=== PATIENT | female | born 1950 | race Caucasian/White ===

== ENCOUNTER 2017-10-14 22:31 | Emergency (ER) | payer OTHER ==
[~2017-10-14] VITALS: Ht 180.3 cm; Wt 87.1 kg
[~2017-10-14 22:31] MED LIST: ASPIRIN EC81 MG PO; SIMVASTATIN10 MG PO
[2017-10-14] MEDS ORDERED: CARVEDILOL12.5 MG PO (22:43)
[2017-10-14] MEDS ORDERED: NORVASC5 MG PO (22:44)
[2017-10-14] MEDS ORDERED: LOSARTAN POTAS100 MG PO (22:44)
[2017-10-14] MEDS ORDERED: TRAZODONE HCL50 MG PO (22:45)
--- OUTSIDE RECORDS SUMMARY | 2017-10-14 23:26 | XMS | Clinical Summary ---
Demographics + + + | Address | [address] | | | [place] [address] | + + + | Home Phone | | + + + | Preferred Language | Unknown | + + + | Marital Status | | + + + | Restoration Affiliation | Unknown | + + + | Race | Unknown | + + + | Ethnic Group | Unknown | + + + Author + + + | Author | [facility] | | | and [place] | + + + | Organization | [facility] | | | and [place] | + + + | Address | Unknown | + + + | Phone | Unavailable | + + + Support + + + + + | Name | Relationship | Address | Phone | + + + + + | Elmer Murillo | ECON | [address] | | | | | [place] [address] | | + + + + + Care Team Providers + +------+ + | Care Operations Lieutenant Name | Role | Phone | + +------+ + | Sharif Fields DO | PP | Unavailable | + +------+ + Allergies No Known Allergies Current Medications + + +---------+---------+------+------+-------+ | Prescription | Sig. | Disp. | Refills | Star | End | Statu | | | | | | t | Date | s | | | | | | Date | | | + + +---------+---------+------+------+-------+ | simvastatin | Take 40 mg by mouth | | | 03/07 | | Activ | | (ZOCOR) 40 mg tablet | Daily. | | | 09/23 | | e | | | | | | 12 | | | + + +---------+---------+------+------+-------+ | aspirin (ASPIRIN | two tablets daily | | | 03/07 | | Activ | | ADULT LOW STRENGTH) | | | | 3/20 | | e | | 81 MG EC tablet | | | | 12 | | | + + +---------+---------+------+------+-------+ | Flaxseed, Linseed, | Take 1,000 mg by | | | 03/07 | | Activ | | (FLAXSEED OIL) 1000 | mouth Daily. | | | 3/20 | | e | | MG CAPS | | | | 12 | | | + + +---------+---------+------+------+-------+ | benzonatate | Take 1 capsule by | 30 | 1 | 02/2 | | Activ | | (TESSALON) 200 MG | mouth 3 times daily | capsule | | 5/20 | | e | | capsuleIndications: | as needed for Cough | | | 16 | | | | Acute bronchitis, | for up to 30 doses. | | | | | | | unspecified organism | | | | | | | + + +---------+---------+------+------+-------+ | | Take 1 tablet by | 30 | 0 | 05/2 | | Activ | | HYDROcodone-acetamin | mouth every 6 hours | tablet | | 1/20 | | e | | ophen (NORCO) 5-325 | as needed for Pain | | | 16 | | | | mg per | (requires photo ID | | | | | | | tabletIndications: | to sampler pickup). | | | | | | | Acute bilateral back | | | | | | | | pain, unspecified | | | | | | | | location | | | | | | | + + +---------+---------+------+------+-------+ Active Problems No known active problems Immunizations + + + + | Name | Dates Previously Given | Next Due | + + + + | INFLUENZA PF | 04/27/2016, 04/22/2015, 04/16/2014 | | | QUAD(PED/ADOL/ADULT) | | | | ,PSKT or VIAL | | | + + + + | INFLUENZA, | 04/26/2017 | | | UNSPECIFIED | | | | FORMULATION | | | + + + + Social History + +-------+ +--------+ + | Tobacco Use | Types | Packs/Day | Years | Date | | | | | Used | | + +-------+ +--------+ + | Former Smoker | | | | Quit: 12/09/2002 | + +-------+ +--------+ + + +---+---+---+ | Smokeless Tobacco: | | | | | Never Used | | | | + +---+---+---+ + + + | Sex Assigned at | Date Recorded | | | | + + + | Not on file | | + + + Last Filed Vital Signs + + + + | Vital Sign | Reading | Time Taken | + + + + | Blood Pressure | 188/108 | 11/25/20151407 PDT | + + + + | Pulse | 64 | 11/25/20151407 PDT | + + + + | Temperature | 36.7 C (98.1 F) | 11/25/20151407 PDT | + + + + | Respiratory Rate | 16 | 11/25/20151407 PDT | + + + + | Oxygen Saturation | 96% | 11/25/20151407 PDT | + + + + | Inhaled Oxygen | - | - | | Concentration | | | + + + + | Weight | 81.7 kg (180 lb 2.7 | 11/25/20151407 PDT | | | oz) | | + + + + | Height | 180.3 cm (5' 11") | 11/25/20151407 PDT | + + + + | Body Mass Index | 25.13 | 11/25/20151407 PDT | + + + + Plan of Treatment + + + + + | Health Maintenance | Due Date | Last Done | Comments | + + + + + | Hepatitis C | | | | | Screening | 3 | | | + + + + + | Vaccine: | | | | | Dtap/Tdap/Td (1 - | 2 | | | | Tdap) | | | | + + + + + | CERVICAL CANCER | | | | | SCREENING (PAP EVERY | 4 | | | | 3 YEARS 21-64 ) | | | | + + + + + | BREAST CANCER | | | | | SCREENING (MAMM Q2 | 3 | | | | YEARS 50-74) | | | | + + + + + | COLON CANCER | | | | | SCREENING | 3 | | | | (COLONOSCOPY EVERY | | | | | 10 YEARS 50-75) | | | | + + + + + | Vaccine: Zoster (#1) | | | | | | 3 | | | + + + + + | Vaccine: Influenza | Completed | 04/26/2017, 04/27/2016, | | | | | 04/22/2015, Additional history | | | | | exists | | + + + + + Results Not on filefrom Last 3 Months Insurance +-------+--------+ +------+ + + | Payer | Benefi | Subscriber | Type | Phone | Address | | | t Plan | ID | | | | | | / | | | | | | | Group | | | | | +-------+--------+ +------+ + + | [employer] | [employer] | xxxxxxxxx | PPO | [phone] | [address] [address] | | | HEALTH | | | [phone] | [place] [address] | | | | | | | | | | [place] | | | | | | | [place] | | | | | +-------+--------+ +------+ + + + +--------+ +--------+ + + | Guarantor Name | Accoun | Relation to | Date | Phone | Billing Address | | | t Type | Patient | of | | | | | | | | | | + +--------+ +--------+ + + | TILA MURILLO | Person | Self [birth year] Home: | [address] | | | al/[place] | | 1950 | [phone] | [place] [address] | | | erlinda | | | [phone] | | + +--------+ +--------+ + +
--- OUTSIDE RECORDS SUMMARY | 2017-10-14 23:27 | XMS | Clinical Summary ---
Demographics + + + | Address | [address] | | | [place] [address] | + + + | Home Phone | | + + + | Preferred Language | Unknown | + + + | Marital Status | | + + + | Shinto Affiliation | Unknown | + + + | Race | Unknown | + + + | Ethnic Group | Unknown | + + + Author + + + | Author | [facility] | | | and [place] | + + + | Organization | [facility] | | | and [place] | + + + | Address | Unknown | + + + | Phone | Unavailable | + + + Support + + + + + | Name | Relationship | Address | Phone | + + + + + | Elmer Murillo | ECON | [address] | | | | | [place] [address] | | + + + + + Care Team Providers + +------+ + | Care Wrapper Opener Name | Role | Phone | + [...] | | | | 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 | | | | | | | [...] | PPO | [phone] | [address] [address] | | | HEALTH | | | [phone] | [place] [address] | | | | | | | [...] | | al/Yanick | | 1950 | [phone] | [place] [address] | | | erlinda | | | [phone] | | + +--------+ +--------+ + +
== END 2017-10-15 00:08 | disposition home or self-care (01) ==
LOC: ED 22:31
PROC: 2Y41X5Z Packing of Nasal Region using Packing Material (ICD-10-PCS; principal; 2017-10-14)
DX: R04.0 Epistaxis (principal); I10 Essential (primary) hypertension; Z91.030 Bee allergy status; Z79.82 Long term (current) use of aspirin; Z79.899 Other long term (current) drug therapy
CPT/HCPCS: 30901; 99282